=== PATIENT | female | born 1955 | race Caucasian/White ===

== ENCOUNTER → 2020-10-07 10:24 | Outpatient (CLI) | payer MEDICARE, SELFPAY ==
--- NOTE | ~2020-10-07 | DEXA_ITS ---
Bone Density Report Name: Yojana Reddy Age: 65 Sex: Female Ethnicity: White Date of : 1955 Indication: osteopenia; postmenopausal Referring Provider: ALBIN MORGAN Study: Bone densitometry was performed. Exam Date: October 07, 2020 Accession number: [id number] Bone Density: Region BMD T-score Z-score Classification AP Spine (L1-L4) 0.865 -1.7 0.1 Osteopenia Femoral Neck (Left) 0.624 -2.0 -0.5 Osteopenia Total Hip (Left) 0.767 -1.4 -0.2 Osteopenia Femoral Neck (Right) 0.617 -2.1 -0.6 Osteopenia Total Hip (Right) 0.783 -1.3 -0.1 Osteopenia Total Hip Mean 0.775 -1.4 -0.2 Osteopenia World Health Organization criteria for BMD impression classify patients as: Normal (T-score at or above -1.0), Osteopenia (T-score between -1.0 and -2.5), or Osteoporosis (T-score at or below -2.5). 10-year Fracture Risk(1): Major Osteoporotic Fracture 11% Hip Fracture 1.6% Reported Risk Factors: [place] (), Neck BMD=0.617, BMI=27.7 (1) FRAX(R) Version 3.08. Fracture probability calculated for an untreated patient. Fracture probability may be lower if the patient has received treatment. Previous Exams: Region Exam Age BMD T-score BMD Change BMD Change Date g/cm2 vs Baseline vs Previous AP Spine(L1-L4) 10/07/2020 65 0.865 -1.7 -0.129 0.007 06/17/2015 59 0.858 -1.7 -0.137 -0.024* 12/28/2011 56 0.881 -1.5 -0.113 -0.012 10/26/2008 53 0.893 -1.4 -0.101 -0.101 01/02/2004 48 0.994 -0.5 Total Hip(Left) 10/07/2020 65 0.767 -1.4 -0.077 -0.003 06/17/2015 59 0.771 -1.4 -0.074 -0.053* 12/28/2011 56 0.823 -1.0 -0.021 0.016 10/26/2008 53 0.808 -1.1 -0.037 -0.037 01/02/2004 48 0.845 -0.8 Total Hip(Right) 10/07/2020 65 0.783 -1.3 -0.077 0.018 06/17/2015 59 0.765 -1.4 -0.095 -0.044* 12/28/2011 56 0.810 -1.1 -0.050 0.014 10/26/2008 53 0.796 -1.2 -0.064 -0.064 01/02/2004 48 0.860 -0.7 *Denotes significance at 95% confidence level, LSC for AP Spine = 0.022 g/cm2, LSC for Total Hip = 0.027 g/cm2 Clinical Information Provided by Patient: Has used the following medications: Vitamin D, MTV Patient maximum height was 60.6 Menopause Age: 50 Drinks caffeinated beverages Onset of menses at age 14 Number of children 3
--- NOTE | ~2020-10-07 | MM_ITS ---
EXAMINATION: MM screening [facility] BI w maegan HISTORY: Screening mammogram TECHNIQUE: Craniocaudal and mediolateral oblique 3-D tomosynthesis images were obtained and synthetic 2-D images were generated. CAD analysis was submitted and interpreted. COMPARISON: 02/19/2019, 02/24/2018, 06/22/2016 bilateral digital screening mammogram examinations.. BREAST PARENCHYMAL COMPOSITION: There are scattered areas of fibroglandular density. FINDINGS: Occasional bilateral benign calcifications. There is no evidence of suspicious mass, calcif ication, or architectural distortion to suggest malignancy in either breast. There has been no suspic ious interval change. IMPRESSION: 1. No mammographic evidence of malignancy. 2. Recommend routine screening mammography in one year. BI-RADS Category 2: Benign finding(s). Reviewed, dictated and finalized at location A.
== END ==
PROVIDERS: Visit Provider Family Medicine
DX: Z12.31 Encounter for screening mammogram for malignant neoplasm of breast (principal); Z78.0 Asymptomatic menopausal state; M85.88 Other specified disorders of bone density and structure, other site; M85.852 Other specified disorders of bone density and structure, left thigh; M85.851 Other specified disorders of bone density and structure, right thigh
CPT/HCPCS: 77063; 77067; 77080

== ENCOUNTER 2021-11-08 08:26 | Outpatient (CLI) | payer MEDICARE, SELFPAY ==
--- NOTE | ~2021-11-08 | MM_ITS ---
EXAMINATION: MM screening [facility] BI w maegan HISTORY: Screening mammogram TECHNIQUE: Craniocaudal and mediolateral oblique 3-D tomosynthesis images were obtained and synthetic 2-D images were generated. CAD analysis was submitted and interpreted. COMPARISON: 10/07/2020, 02/27/2019 BREAST PARENCHYMAL COMPOSITION: There are scattered areas of fibroglandular density. FINDINGS: RIGHT BREAST: There is no suspicious mass, calcification, or architectural distortion to suggest lashawn gnancy. There has been no significant interval change. LEFT BREAST: There is focal asymmetry in the posterior third of the inner breast. IMPRESSION: 1. Left breast focal asymmetry. 2. Additional mammographic views and possible breast ultrasound are recommended. BI-RADS Category 0: Incomplete: Needs additional imaging evaluation. Reviewed, dictated and finalized at location A. IMPRESSION: 1. Left breast focal asymmetry. 2. Additional mammographic views and possible breast ultrasound are recommended . BI-RADS Category 0: Incomplete: Needs additional imaging evaluation.
== END 2021-11-08 08:27 | disposition home or self-care (01) ==
LOC: ANHIMG 08:27
PROVIDERS: PCP Family Medicine; Visit Provider Family Medicine
DX: Z12.31 Encounter for screening mammogram for malignant neoplasm of breast (principal); R92.8 Other abnormal and inconclusive findings on diagnostic imaging of breast
CPT/HCPCS: 77063; 77067

== ENCOUNTER → 2021-12-11 07:40 | Outpatient (CLI) | payer MEDICARE, SELFPAY ==
--- NOTE | ~2021-12-11 | MMUS_ITS ---
EXAMINATION: MM diagnostic farhad LT w maegan, US breast LT limited HISTORY: Pain of the outer left breast TECHNIQUE: Craniocaudal, mediolateral, and mediolateral oblique 3-D tomosynthesis images of the left breast were performed and synthetic 2-D images were generated. CAD analysis was submitted and interpr eted. High resolution limited left breast ultrasound was performed. COMPARISON: 11/08/2021, 10/07/2020, 02/27/2019 BREAST PARENCHYMAL COMPOSITION: There are scattered areas of fibroglandular density. FINDINGS: MAMMOGRAPHIC FINDINGS: No mammographic correlate is identified for the patient's reported left breast pain. Chronic dystroph ic calcifications or the upper outer quadrant of the breast. ULTRASOUND: There is no evidence of focal abnormal solid or cystic mass in the vicinity of the patient's reported left breast pain. IMPRESSION: 1. No specific mammographic or sonographic correlate is identified for the patient's reported left br east pain. Further evaluation at this time should be based on clinical assessment. Continued follow-u p physical examination is recommended. 2. Recommend routine screening mammography in one year. BI-RADS Category 2: Benign finding(s). Reviewed, dictated and finalized at location A. IMPRESSION: 1. No specific mammographic or sonographic correlate is identified for the esther ent's reported left breast pain. Further evaluation at this time should be base d on clinical assessment. Continued follow-up physical examination is recommend ed. 2. Recommend routine screening mammography in one year. BI-RADS Category 2: Benign finding(s).
== END ==
PROVIDERS: PCP Family Medicine; Visit Provider Family Medicine
DX: R92.8 Other abnormal and inconclusive findings on diagnostic imaging of breast (principal)
CPT/HCPCS: 76642; 77061; 77065; G0279

== ENCOUNTER 2022-11-26 08:46 | Day surgery (SDC) | payer MEDICARE, SELFPAY ==
[2022-08-27 09:49] VITALS: BMI 27.8
[2022-09-30 14:06] VITALS: BMI 27.5
--- NOTE | 2022-11-25 13:54 | P.PNAN_ITS ---
Anes - Initial Pre Proc Eval Procedure: Operation Date: 11/26/22 10:30 Proposed Procedures p Diagnostic Colonoscopy - Lowell Tucker MD Date/Time: 11/25/22 13:54 Surgeon: Lowell Tucker MD Pre Op Diagnosis: Positive Cologuard Patient Data Age: 67 Gender: F Height: 1.52 m Weight: 64 kg Allergies Allergy/AdvReac Type Severity Reaction Status Date / Time codeine AdvReac Unknown sensation Verified 11/26/22 09:13 of bugs crawling on her Home Medications Medication Instructions Recorded Confirmed Type gmgtrdchjlaq-Bf-qaqg-minerals 1 tablet PO DAILY 11/10/21 11/26/22 History lisinopril 10 mg tablet 15 mg PO DAILY #150 tabs 09/25/22 11/26/22 Rx atorvastatin 40 mg tablet 40 mg PO DAILY 09/30/22 11/26/22 History Patient hx anesthesia problems: none Family hx anesthesia problems: none Results Review: All pre-operative results and documents have been reviewed as part of the pre- operative evaluation. [facility] Past Medical History Medical History (Updated 11/25/22 @ 22:21 by Lowell Tucker MD) BMI 27.0-27.9,adult Dermatomyositis Elevated glucose Essential hypertension FH: premature coronary heart disease Mixed hyperlipidemia Osteopenia Vitamin D deficiency Family History Family History Other Family history of Parkinson's disease Family history of coronary artery disease Family history of elevated blood lipids Family history of thyroid disease Social History Social History (Updated 06/29/22 @ 10:06 by Lauren Ibarra CMA) Smoking status: Never smoker Second hand tobacco smoke exposure: No Alcohol intake: current Drinks per week: 1 Substance use: never Substance use type: does not use Lack of Transportation: No Lack of Food: Never True Current Housing: I Have Housing Concerned About Future Housing: No Difficulty Paying Gas/Electric Bills: No Difficulty Paying for Meds: No Currently Unemployed: No Education: Master's Degree or Higher Difficulty w/ Childcare or Family Care: No Living arrangements: with family Occupation/Education: retired Gender identity (if verbalized by the patient): Female Sexual Orientation (if Verbalized by the Patient): Straight or Heterosexual Spiritual care concerns: No Anes - Eval Final PreProcedure Day of Procedure 11/25/22 13:54 Patient weight: overweight Heart: regular rate and rhythm Lungs: clear to auscultation Airway: Mallampati scale class II Neurological: alert and oriented Last oral intake: >/= 8 hours ASA classification: II Emergent: no Anesthetic plan: proceed Anesthesia type and monitoring: general GIVS and standard monitoring Results Review: All pre-operative results and documents have been reviewed as part of the pre- operative evaluation. Informed Consent: The patient's anesthetic plan and its attendant risks and benefits were discussed with the patient/family/POA. Questions were solicited and answers provided to the satisfaction of the patient/family/POA.
--- NOTE | 2022-11-25 22:20 | PM.HPGS ---
History of Present Illness History of Present Illness Consent: Risks, benefits, and alternatives have been discussed and questions answered. Patient agrees to proceed with procedure. Chief complaint: Positive Cologuard Narrative: Yojana Reddy is a 67 year old female who is referred for colon cancer screening.She performed a cologuard test which was + Review of Systems Review of Systems: All systems reviewed & are unremarkable except as noted in HPI and below PMFSH Past Medical History Medical History BMI 27.0-27.9,adult Dermatomyositis Elevated glucose Essential hypertension FH: premature coronary heart disease Mixed hyperlipidemia Osteopenia Vitamin D deficiency Family History Family History Other Family history of Parkinson's disease Family history of coronary artery disease Family history of elevated blood lipids Family history of thyroid disease Social History Social History Smoking status: Never smoker Second hand tobacco smoke exposure: No Alcohol intake: current Drinks per week: 1 Substance use: never Substance use type: does not use Lack of Transportation: No Lack of Food: Never True Current Housing: I Have Housing Concerned About Future Housing: No Difficulty Paying Gas/Electric Bills: No Difficulty Paying for Meds: No Currently Unemployed: No Education: Master's Degree or Higher Difficulty w/ Childcare or Family Care: No Living arrangements: with family Occupation/Education: retired Gender identity (if verbalized by the patient): Female Sexual Orientation (if Verbalized by the Patient): Straight or Heterosexual Spiritual care concerns: No Meds Home Medications and Allergies Home Medications Medication Instructions Recorded Confirmed Type flihzhquwcyg-Sr-pycc-minerals 1 tablet PO DAILY 11/10/21 11/26/22 History lisinopril 10 mg tablet 15 mg PO DAILY #150 tabs 09/25/22 11/26/22 Rx atorvastatin 40 mg tablet 40 mg PO DAILY 09/30/22 11/26/22 History Allergies Allergy/AdvReac Type Severity Reaction Status Date / Time codeine AdvReac Unknown sensation Verified 11/26/22 09:13 of bugs crawling on her Exam Const: General: alert Orientation/consciousness: patient oriented x3 Resp: Auscultation: clear to auscultation bilaterally Cardio: Rhythm: regular rhythm GI: GI Palp: Yes Soft to palpation and No Tenderness to palpation present (GI) Neuro: General: patient oriented x3 Assessment and Plan Assessment and plan (1) Colon cancer screening: Code(s): Z12.11 - Encounter for screening for malignant neoplasm of colon Status: Acute Assessment and Plan: Colonoscopy with possible biopsy or polypectomy or cautery or injection of substances.
[2022-11-26 09:14] VITALS: BP 197/91; PULSE 87; RESP 16; TEMP 37.2; O2SAT 100
[2022-11-26] MEDS: LACTATED RINGERS 1,000 ML 150 ML IV CONT (09:26)
[2022-11-26 10:26] VITALS: BP 126/59; PULSE 59; RESP 18; O2SAT 97
[2022-11-26 10:36] VITALS: BP 114/60; PULSE 63; RESP 18; O2SAT 100
[2022-11-26 10:46] VITALS: BP 129/72; PULSE 55; RESP 18; O2SAT 99
--- NOTE | 2022-11-26 10:56 | WPDANESPN ---
Anes - Prog Note Post-Op Date/Time: 11/26/22 10:56 Cardiovascular status: normal Respiratory status: normal Airway patency: baseline Mental status: baseline Post-Op hydration status: normal Vital Signs: Last Vital Signs Temp 37.2 C 11/26/22 09:14 Pulse 55 L 11/26/22 10:46 Resp 18 11/26/22 10:46 BP 129/72 11/26/22 10:46 Pulse Ox 99 11/26/22 10:46 O2 Del Method Room Air 11/26/22 10:46 Pain Score (VAS): 0 I/O: Intake & Output 11/25/22 11/26/22 11/26/22 23:59 07:59 15:59 Intake Total 600 Balance 600 Post-procedural complaints: none Patient Feedback: Patient satisfied with anesthetic care. Other Findings: Patient vital signs back to baseline. Patient denies nausea and vomiting. Patient's pain under control. Patient OK for discharge.
== END 2022-11-26 10:58 | disposition home or self-care (01) ==
PROVIDERS: PCP Family Medicine; Visit Provider Internal Medicine Gastroenterology
PROC: 0DJD8ZZ Inspection of Lower Intestinal Tract, Via Natural or Artificial Opening Endoscopic (ICD-10-PCS; CPT 45378; principal; 2022-11-26 10:30)
DX: Z12.11 Encounter for screening for malignant neoplasm of colon (principal); R19.5 Other fecal abnormalities
CPT/HCPCS: 45378

== ENCOUNTER → 2022-12-29 14:39 | Outpatient (CLI) | payer MEDICARE, SELFPAY ==
--- NOTE | ~2022-12-29 | MM_ITS ---
EXAMINATION: MM screening [facility] BI w maegan HISTORY: Screening mammogram TECHNIQUE: Craniocaudal and mediolateral oblique 3-D tomosynthesis images were obtained and synthetic 2-D images were generated. CAD analysis was submitted and interpreted. COMPARISON: 1122, 11/08/2021, 10/07/2020 BREAST PARENCHYMAL COMPOSITION: There are scattered areas of fibroglandular density. FINDINGS: No suspicious mass, calcification, or architectural distortion are identified in either luca ast to suggest malignancy. There has been no suspicious interval change. IMPRESSION: 1. No mammographic evidence of malignancy. 2. Recommend routine screening mammography in one year. BI-RADS Category 1: Negative Reviewed, dictated and finalized at location A.
== END ==
PROVIDERS: PCP Family Medicine; Visit Provider Physician Assistant
DX: Z12.31 Encounter for screening mammogram for malignant neoplasm of breast (principal)
CPT/HCPCS: 77063; 77067

== ENCOUNTER 2024-03-02 14:41 | Outpatient (CLI) | payer MEDICARE, SELFPAY ==
--- NOTE | ~2024-03-02 | MM_ITS ---
EXAMINATION: MM screening [facility] BI w maegan HISTORY: Screening mammogram TECHNIQUE: Craniocaudal and mediolateral oblique 3-D tomosynthesis images were obtained and synthetic 2-D images were generated. CAD analysis was submitted and interpreted. COMPARISON: 12/20/2022, 11/08/2021, 10/07/2020 BREAST PARENCHYMAL COMPOSITION:Not Dense. There are scattered areas of fibroglandular density. FINDINGS: No suspicious mass, calcification, or architectural distortion are identified in either luca ast to suggest malignancy. There has been no suspicious interval change. IMPRESSION: No mammographic evidence of malignancy. Recommend routine screening mammography in one year. BI-RADS Category 1: Negative Reviewed, dictated and finalized at location .
--- NOTE | ~2024-03-02 | DEXA_ITS ---
Bone Density Report Name: ANTOINE ALVARADO Age: 68 Sex: Female Ethnicity: White Date of : 1955 Indication: postmenopausal; screening for osteoporosis; Referring Provider: ALBIN MORGAN Study: Bone densitometry was performed. Exam Date: March 02, 2024 Accession number: [id number] Bone Density: Region BMD T-score Z-score Classification AP Spine(L1-L4) 0.879 -1.5 0.5 Osteopenia Femoral Neck (Left) 0.591 -2.3 -0.6 Osteopenia Total Hip (Left) 0.809 -1.1 0.3 Osteopenia Femoral Neck (Right) 0.579 -2.4 -0.7 Osteopenia Total Hip (Right) 0.778 -1.3 0.1 Osteopenia Total Hip Mean 0.794 -1.2 0.2 Osteopenia World Health Organization criteria for BMD impression classify patients as: Normal (T-score at or above -1.0), Osteopenia (T-score between -1.0 and -2.5), or Osteoporosis (T-score at or below -2.5). 10-year Fracture Risk(1): Major Osteoporotic Fracture 13% Hip Fracture 2.9% Reported Risk Factors: [place] (), Neck BMD=0.579, BMI=26.6 (1) FRAX(R) Version 3.08. Fracture probability calculated for an untreated patient. Fracture probability may be lower if the patient has received treatment. Clinical Information Provided by Patient: Has used the following medications: Vitamin D Patient maximum height was 60 Menopause Age: 45 Drinks caffeinated beverages Onset of menses at age 15 Number of children 3 Impression: The patient has low bone mass, based on the Right Femoral Neck T-score. The patient has an estimated ten-year risk of hip fracture of 2.9% and an estimated ten-year risk of major fracture of 13%, based on the WHO FRAX algorithm. Discussion: BONE DENSITY IS LOW AT ONE OR MORE SKELETAL SITES. This patient's lowest T-score is low at one or more skeletal sites. It meets the World Health Organization's (WHO) criteria for ?low bone mass? (T-score between -1.0 and -2.5). The patient's 10-year risk of fracture as calculated by FRAX is less than the threshold where pharmacological therapy is recommended by the National Osteoporosis Foundation (NOF). However, all treatment decisions require clinical judgment and consideration of individual patient factors, including patient preferences, comorbidities, previous drug use, risk factors not captured in the FRAX model (e.g., frailty, falls, vitamin D deficiency, increased bone turnover, interval significant decline in bone density) and possible under or overestimation of fracture risk by FRAX. The patient should follow a healthful lifestyle (good nutrition with adequate calcium and vitamin D, and appropriate weight-bearing exercise). Follow-Up: Consider repeating this study in 2 to 3 years to reassess this patient's status, or sooner if there is some new clinical indication. Reported by: DOLORES on 03/02/2024 3:13:00 PM. Reviewed, dictated and finalized at location A. [facility]
== END 2024-03-02 14:42 | disposition home or self-care (01) ==
LOC: ANHIMG 14:42
PROVIDERS: PCP Family Medicine; Visit Provider Family Medicine
DX: Z12.31 Encounter for screening mammogram for malignant neoplasm of breast (principal); Z78.0 Asymptomatic menopausal state; M85.88 Other specified disorders of bone density and structure, other site; M85.852 Other specified disorders of bone density and structure, left thigh; M85.851 Other specified disorders of bone density and structure, right thigh
CPT/HCPCS: 77063; 77067; 77080